=== PATIENT | female | born 1990 | race Caucasian/White ===

== ENCOUNTER 2017-05-01 17:58 | Emergency (ER) | payer MEDICAID ==
[~2017-05-01] VITALS: Ht 154.9 cm; Wt 56.7 kg
[2017-05-01 18:08] VITALS: BP 113/78
[2017-05-01] MEDS ORDERED: HYDROCODONE/APAP 5/325MG 1 EACH TABLET ONE (18:44)
[2017-05-01] MEDS ORDERED: HYDROCODONE/APAP 5/325MG 1 EACH TABLET PO ONE (19:00)
== END 2017-05-01 18:46 | disposition home or self-care (01) ==
LOC: ER 17:59
DX: K08.89 Other specified disorders of teeth and supporting structures (principal); K01.1 Impacted teeth; H92.02 Otalgia, left ear
CPT/HCPCS: 99283; A4606; Z7610

== ENCOUNTER 2017-05-16 18:56 | Emergency (ER) | payer MEDICAID ==
[~2017-05-16] VITALS: Ht 154.9 cm; Wt 59.0 kg
[2017-05-16 19:06] VITALS: BP 128/57
[2017-05-16] MEDS ORDERED: HYDROCODONE/APAP 5/325MG 1 EACH TABLET ONE (20:18)
[2017-05-16] MEDS ORDERED: HYDROCODONE/APAP 5/325MG 1 EACH TABLET PO ONE (20:30)
== END 2017-05-16 20:22 | disposition home or self-care (01) ==
LOC: ER 18:58
DX: K08.89 Other specified disorders of teeth and supporting structures (principal)
CPT/HCPCS: 99283; A4606; Z7610